=== PATIENT | female | born 1985 | race Caucasian/White ===

== ENCOUNTER 2016-10-21 17:17 | Emergency (ER) | payer OTHER ==
[2016-10-21 17:17] VITALS: BMI 26.4
[2016-10-21 17:28] VITALS: PULSE 82; O2SAT 98
--- NOTE | 2016-10-21 18:36 | C.PDOC ---
History Of Present Illness 31 y/o female c/o pain from right side neck radiating to ear and anterior neck over last 4 days with throat pain and right lower tooth pain. pt sts fever to 1010 yesterday. pt taking aleve with some relief. no cough. Time Seen by Provider: 10/21/16 17:43 Chief Complaint (Nursing): Dental Pain History Per: Patient Onset/Duration Of Symptoms: Days (4) Current Symptoms Are (Timing): Worse Quality: Positive for: Sharp Recent travel outside of the [place]: No Past Medical History Reviewed: Historical Data, Nursing Documentation, Vital Signs Vital Signs: Last Vital Signs Temp 97.3 F L 10/21/16 17:26 Pulse 82 10/21/16 17:26 Resp 16 10/21/16 17:26 BP 165/91 H 10/21/16 17:26 Pulse Ox 98 10/21/16 17:26 - Medical History PMH: Asthma (HX. NO MEDS), Migraine Surgical History: No Surg Hx - [facility] Procedures LAPAROSCOPY (03/08/14) Family History: States: Unknown Family Hx - Social History Hx Tobacco Use: No Hx Alcohol Use: Yes Hx Substance Use: No - Immunization History Hx Influenza Vaccination: No Review Of Systems Constitutional: Positive for: Fever (to 101) ENT: Positive for: Ear Pain, Mouth Pain, Throat Pain Cardiovascular: Negative for: Chest Pain Respiratory: Negative for: Cough Skin: Negative for: Rash Physical Exam - Physical Exam Appears: Non-toxic, No Acute Distress Skin: Normal Color, Warm, Dry Head: Atraumatic, Normacephalic Eye(s): bilateral: Normal Inspection Ear(s): Bilateral: Normal Nose: Normal Oral Mucosa: Moist Tongue: Normal Appearing Lips: Normal Appearing Teeth: Normal Dentition, Tender To Palpation (right lower molar, small piece broken, gum swelling adjacent) Neck: Supple Lymphatic: Adenopathy (right tender cervical anterior and posterior and submandibular nodes. ) ED Course And Treatment O2 Sat by Pulse Oximetry: 98 Medical Decision Making Medical Decision Making: tx for dental infection. pt to f/u with her dentist on fri Disposition Counseled Patient/Family Regarding: Diagnosis, Need For Followup, Rx Given - Disposition Disposition: HOME/ ROUTINE Disposition Time: 18:45 Condition: GOOD Additional Instructions: Follow up with your dentist or pMD on Ffriday as scheduled. Take antibiotics as prescribed. Take Aleve for pain. Prescriptions: Amoxicillin 500 mg PO TID #30 tablet Forms: General Discharge Instructions - Clinical Impression Clinical Impression: Dental caries
[2016-10-21 19:00] VITALS: BP 132/75; RESP 17; TEMP 98.2
== END 2016-10-21 19:01 | disposition home or self-care (01) ==
LOC: C.ER 17:17
DX: K02.9 Dental caries, unspecified (principal)

== ENCOUNTER 2017-01-13 17:14 | Emergency (ER) | payer OTHER ==
[2017-01-13 17:14] VITALS: BMI 26.4
[2017-01-13 17:27] VITALS: TEMP 98.2
[2017-01-13 18:18] LABS: RBC URINE 443 /hpf (0-3); URINE BACTERIA RARE (<OCC); URINE BILIRUBIN NEGATIVE (NEGATIVE); URINE BLOOD 3+ (NEGATIVE); URINE COLOR Yellow (YELLOW); URINE GLUCOSE (UA) NORMAL (Normal); URINE KETONE 2+ mg/dL (NEGATIVE); URINE LEUKOCYTE ESTERASE NEG Leu/uL (Negative); URINE PROTEIN 1+ mg/dL (NEGATIVE); URINE UROBILINOGEN NORMAL mg/dL (0.2-1.0); WBC URINE 1 /hpf (0-5)
[2017-01-13 18:20] VITALS: BP 139/79; PULSE 74; RESP 16
--- NOTE | 2017-01-13 18:20 | C.PDOC ---
History Of Present Illness 31 y/o female presents to ED with c/o abnormal vaginal bleeding for the last two weeks. Patient states that the vaginal bleeding first started out as her normal menstrual period which lasted for about 4-5 days, tapered off and stopped for about 1 day, and then recurred as spotting for the last week. Patient states vaginal bleeding became heavy and is associated with suprapubic cramping pain. Patient notes she had been on control pill for a while and stopped last July. She states that she had been trying to get until October, and that since then, she has been using barrier protection as contraception. She otherwise denies dizziness, palpitations, lightheadedness, fever, or chills. Time Seen by Provider: 01/13/17 18:06 Chief Complaint (Nursing): Abdominal Pain History Per: Patient History/Exam Limitations: no limitations Onset/Duration Of Symptoms: Days, Persistent Current Symptoms Are (Timing): Still Present Location Of Pain/Discomfort: Suprapubic Radiation Of Pain To:: None Quality Of Discomfort: Cramping Associated Symptoms: denies: Fever, Chills, Vomiting, Diarrhea, Urinary Symptoms Recent travel outside of the [place]: No Abnormal Vaginal Bleeding: Yes Past Medical History Reviewed: Historical Data, Nursing Documentation, Vital Signs Vital Signs: Last Vital Signs Temp 98.2 F 01/13/17 17:23 Pulse 74 01/13/17 18:19 Resp 16 01/13/17 18:19 BP 139/79 01/13/17 18:19 Pulse Ox 100 01/13/17 18:21 - Medical History PMH: Asthma (HX. NO MEDS), HTN, Migraine - [facility] Procedures LAPAROSCOPY (03/08/14) Family History: States: Unknown Family Hx - Social History Hx Tobacco Use: No Hx Alcohol Use: No Hx Substance Use: No - Immunization History Hx Tetanus Toxoid Vaccination: No Hx Influenza Vaccination: Yes Hx Pneumococcal Vaccination: No Review Of Systems Except As Marked, All Systems Reviewed And Found Negative. Constitutional: Negative for: Fever, Chills Cardiovascular: Negative for: Chest Pain, Palpitations Respiratory: Negative for: Cough Gastrointestinal: Positive for: Abdominal Pain. Negative for: Nausea, Vomiting , Diarrhea Genitourinary: Positive for: Vaginal Bleeding. Negative for: Dysuria, Hematuria Skin: Negative for: Rash Physical Exam - Physical Exam Appears: Non-toxic, No Acute Distress Skin: Warm, Dry Head: Atraumatic, Normacephalic Eye(s): bilateral: Normal Inspection Oral Mucosa: Moist Chest: Symmetrical Cardiovascular: Rhythm Regular Respiratory: Normal Breath Sounds, No Rales, No Rhonchi, No Wheezing Gastrointestinal/Abdominal: Soft, Tenderness (mild suprapubic tenderness), No Distention, No Guarding, No Rebound Back: Normal Inspection Extremity: Normal ROM, Capillary Refill (< 2 sec.) Neurological/Psych: Oriented x3, Normal Speech, Normal Cognition ED Course And Treatment - Laboratory Results Result Diagrams: 01/13/17 18:19 Lab Interpretation: Normal O2 Sat by Pulse Oximetry: 100 (RA) Pulse Ox Interpretation: Normal Progress Note: Labs including bloodwork and urinalysis ordered. 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 Instructions: Dysfunctional Uterine Bleeding (ED) - Clinical Impression Clinical Impression: Abnormal vaginal bleeding - Scribe Statement The provider has reviewed the documentation as recorded by the Kip Santoyo Provider Attestation: All medical record entries made by the Kip were at my direction and personally dictated by me. I have reviewed the chart and agree that the record accurately reflects my personal performance of the history, physical exam, medical decision making, and the department course for this patient. I have also personally directed, reviewed, and agree with the discharge instructions and disposition.
[2017-01-13 18:26] LABS: BASO # 0.1 K/uL (0.0-0.2); BASO % 0.6 % (0.0-2.0); EOS # 0.1 K/uL (0.0-0.7); EOS % 0.7 % (0.0-4.0); HEMATOCRIT 40.5 % (34.0-47.0); LYMPH # 2.9 K/uL (1.0-4.3); MEAN CELL VOLUME 89.8 fL (81.0-99.0); MEAN CORPUSCULAR HGB CONC 33.4 g/dL (33.0-37.0); MEAN PLATELET VOLUME 9.5 fL (7.2-11.7); MONO # 0.5 K/uL (0.0-0.8); MONO % 4.9 % (0.0-10.0); RED CELL DISTRIBUTION WIDTH 14.6 % (11.5-14.5); WHITE BLOOD COUNT 10.4 K/uL (4.8-10.8)
[2017-01-13 18:28] VITALS: O2SAT 100
== END 2017-01-13 19:30 | disposition home or self-care (01) ==
LOC: C.ER 17:14
DX: N93.9 Abnormal uterine and vaginal bleeding, unspecified (principal)

== ENCOUNTER 2018-05-26 10:16 | Emergency (ER) | payer OTHER ==
[2018-05-26 10:32] VITALS: BMI 24.7
[2018-05-26 10:43] VITALS: BP 130/84; PULSE 82; RESP 16; TEMP 98.9; O2SAT 100
[2018-05-26 11:43] LABS: SQUAMOUS EPITHIAL 5 /hpf (0-5); URINE BILIRUBIN NEGATIVE (NEGATIVE); URINE BLOOD NEGATIVE (NEGATIVE); URINE CLARITY Clear (Clear); URINE COLOR Yellow (YELLOW); URINE GLUCOSE (UA) NORMAL (Normal); URINE LEUKOCYTE ESTERASE NEG Leu/uL (Negative); URINE PROTEIN NEGATIVE (NEGATIVE)
--- NOTE | 2018-05-26 11:57 | C.PDOC ---
History Of Present Illness 33 y/o female with PMH of asthma, migraines, and HTN presents to the ED c/o anxiety x 2 weeks. She states she has lots of good things in her life but is unable to appreciate them because she is always sad and anxious. Pt saw PMD for this issue who prescribed her Xanax, which she states is not helping. Pt is having difficulty sleeping at night secondary to racing thoughts. Only physical complaint is mild suprapubic tenderness. LMP 04/21/18. Denies alcohol/drug use, SI, HI, hallucinations, delusions, chest pain, headache, SOB, N/V, urinary symptoms, vaginal discharge, vaginal bleeding. Chief Complaint (Nursing): Anxiety History Per: Patient History/Exam Limitations: no limitations Onset/Duration Of Symptoms: Days Past Medical History Vital Signs: Last Vital Signs Temp 98.9 F 05/26/18 10:37 Pulse 82 05/26/18 10:37 Resp 16 05/26/18 10:37 BP 130/84 05/26/18 10:37 Pulse Ox 100 05/26/18 10:37 - Medical History PMH: Asthma (HX. NO MEDS), HTN, Migraine - [facility] Procedures LAPAROSCOPY (03/08/14) Family History: States: Unknown Family Hx - Social History Hx Tobacco Use: No Hx Alcohol Use: No Hx Substance Use: No - Immunization History Hx Tetanus Toxoid Vaccination: No Hx Influenza Vaccination: Yes (2017) Hx Pneumococcal Vaccination: No Review Of Systems Except As Marked, All Systems Reviewed And Found Negative. Constitutional: Negative for: Fever, Chills Eyes: Negative for: Pain, Vision Change Cardiovascular: Negative for: Chest Pain, Palpitations Respiratory: Negative for: Cough, Shortness of Breath Gastrointestinal: Positive for: Abdominal Pain (mild suprapubic). Negative for: Nausea, Vomiting, Diarrhea, Constipation Genitourinary: Negative for: Dysuria, Frequency, Vaginal Discharge, Vaginal Bleeding, Pelvic Pain, Rash Musculoskeletal: Negative for: Neck Pain, Back Pain, Foot Pain Skin: Negative for: Rash Neurological: Negative for: Weakness, Numbness, Headache, Dizziness Psych: Positive for: Anxiety, Depression. Negative for: Psychosis, Suicidal ideation, Withdrawal Physical Exam - Physical Exam Appears: Well, No Acute Distress, Other (anxious, tearful) Skin: Normal Color, Warm, Dry Head: Atraumatic, Normacephalic Eye(s): bilateral: Normal Inspection, PERRL, EOMI Nose: Normal Oral Mucosa: Moist Tongue: Normal Appearing Lips: Normal Appearing Throat: Normal Neck: Normal Lymphatic: Deferred Chest: Symmetrical Cardiovascular: Rhythm Regular Respiratory: Normal Breath Sounds Gastrointestinal/Abdominal: Tenderness (mild suprapubic) Back: Normal Inspection Extremity: Normal ROM Extremity: Bilateral: Atraumatic, Normal Color And Temperature, Normal ROM Pulses: Left Radial: Normal, Right Radial: Normal Neurological/Psych: Oriented x3, Normal Speech, Normal Cognition, Normal Cranial Nerves, Normal Motor, Normal Sensation Gait: Steady ED Course And Treatment O2 Sat by Pulse Oximetry: 100 Medical Decision Making Medical Decision Making: Initial Plan: --Reassurance --Discussion of anxiety medication use --Discussion of sleep hygiene --UA, culture --POC urine preg POC urine preg. positive - result discussed with pt. Pt tearful, has been attempting to conceive with over last 3 months. Pts family at bedside. Pt states she has established OBGYN followup from her first child, no need for new referral. Impression: Anxiety, Positive Test Plan: -- vitamins --stop alcohol and tobacco use --stop xanax --sleep hygiene --followup with OBGYN within 2 days --followup with PMD within 2 days --return to ED if symptoms worsen Disposition Discussed With : Lance Pacheco Comment: TV US not indicated; followup with OBGYN - Disposition Referrals: Marilou Mendoza MD [Staff Provider] - Disposition: HOME/ ROUTINE Disposition Time: 11:30 Condition: STABLE Additional Instructions: Begin vitamins No tobacco or alcohol use Stop taking Xanax Only take Tylenol for pain, including headaches Followup with primary doctor within 2 days to discuss feelings of anxiety and depression Followup with OBGYN within 2 days to discuss Return to ED if symptoms worsen, you have feelings of hurting yourself or others, fevers, severe belly pain, severe vaginal bleeding Prescriptions: Vit No.126/Iron/Folic [Classic Tablet] 1 each PO DAILY #30 tablet Instructions: Anxiety, Adult (DC), Care Forms: [facility] ([place]) - Clinical Impression Clinical Impression: Anxiety, Positive urine test
== END 2018-05-26 12:06 | disposition home or self-care (01) ==
LOC: C.ER 10:16
DX: F41.9 Anxiety disorder, unspecified (principal); Z32.01 Encounter for pregnancy test, result positive

== ENCOUNTER 2018-06-15 18:36 | Emergency (ER) | payer OTHER ==
[2018-06-15 18:45] VITALS: BMI 25.3
--- NOTE | 2018-06-15 20:25 | C.PDOC ---
History Of Present Illness 33 year old femal, , presents to the ED for evaluation of of vaginal bleeding, EDC 01/21/19. Patient states she is usually nauseous on her , patient reports she had a cerclage done on her first and is scheduled to have one done in July. Patient states she went to vomit today and felt blood coming. Patient states she saw a lot of blood, some clots. Patient is currently taking pre vitamins. Patient c/o minimal abdominal cramping. Patient denies fever, chills, diarrhea, vaginal discharge, back pain, dysuria, weakness, numbness. Time Seen by Provider: 06/15/18 19:24 Chief Complaint (Nursing): Female Genitourinary History Per: Patient History/Exam Limitations: no limitations Onset/Duration Of Symptoms: Days Current Symptoms Are (Timing): Still Present Quality Of Discomfort: Cramping Associated Symptoms: Nausea, Vomiting. denies: Diarrhea, Urinary Symptoms Recent travel outside of the [place]: No Additional History Per: Patient Abnormal Vaginal Bleeding: Yes : 1 Para: 1 Past Medical History Reviewed: Historical Data, Nursing Documentation, Vital Signs Vital Signs: Last Vital Signs Temp 98.5 F 06/15/18 18:45 Pulse 68 06/15/18 18:45 Resp 18 06/15/18 18:45 BP 132/80 06/15/18 18:45 Pulse Ox 100 06/15/18 18:45 - Medical History PMH: Asthma, HTN, Migraine Surgical History: No Surg Hx - [facility] Procedures LAPAROSCOPY (03/08/14) Family History: States: Unknown Family Hx - Social History Hx Tobacco Use: No Hx Alcohol Use: No Hx Substance Use: No - Immunization History Hx Tetanus Toxoid Vaccination: No Hx Influenza Vaccination: No Hx Pneumococcal Vaccination: No Review Of Systems Constitutional: Negative for: Fever, Chills Cardiovascular: Negative for: Chest Pain Respiratory: Negative for: Cough, Shortness of Breath Gastrointestinal: Positive for: Nausea, Vomiting, Abdominal Pain. Negative for: Diarrhea Genitourinary: Positive for: Vaginal Bleeding. Negative for: Dysuria Skin: Negative for: Rash Neurological: Negative for: Weakness, Numbness Physical Exam - Physical Exam Appears: Non-toxic, No Acute Distress Skin: Normal Color, Warm, Dry Head: Atraumatic, Normacephalic Eye(s): bilateral: Normal Inspection, PERRL, EOMI Oral Mucosa: Moist Neck: Normal ROM, Supple Chest: Symmetrical Cardiovascular: Rhythm Regular Respiratory: Normal Breath Sounds, No Rales, No Rhonchi, No Wheezing Gastrointestinal/Abdominal: Bowel Sounds (active), Soft, Tenderness (lower abdomen ), No Guarding, No Rebound Back: No CVA Tenderness Pelvic: Normal Speculum Exam (dark red blood pooling on the vaginal vault, clots presents, bleeding OS), Normal Bimanual Exam, Cervix Open (finger tips) Extremity: Normal ROM, No Tenderness, No Swelling Neurological/Psych: Oriented x3, Normal Speech, Normal Cognition Gait: Steady ED Course And Treatment - Laboratory Results Result Diagrams: 06/15/18 20:37 06/15/18 20:37 O2 Sat by Pulse Oximetry: 100 (ON RA) Pulse Ox Interpretation: Normal - CT Scan/US Pelvic US Other Rad Studies (CT/US): Read By Radiologist, Radiology Report Reviewed CT/US Interpretation: History. Vaginal bleeding. Comparison. None available. Findings. Uterus. Single Live intrauterine gestation. CRL equivalent to 8 wks/0 days gestatioin. Gestational sac diameter equivalent to 8 wks/2 days gestation. Heart rate: 143.5 bpm. Bernie-gestational hemorrhage: None. Uterus measures 9.97 x 6.04 x 6.99 cm. No mass. Cervix. Long and closed measuring 2.98 cm. No cervical abnormality seen. Right Ovary. Measures 2.63 x 1.42 x 2.62 cm. No mass. Normal flow. Cyst measures 1.25 x 0.62 x 1.02 cm. Left Ovary. Measures 3.46 x 2.4 x 2.86 cm. No mass. Normal flow. Free Fluid. None. Other Findings. None. Impression. 1. Single live intrauterine gestation 8 weeks 1 day. 2. Small right ovarian cyst. . Electronically signed on Jun 15, 2018 9:30:28 PM EST by: Christian Casper M.D., YONG Certified By ABR & CBCCT. Fellowship Trained MRI and CT Specialist Medical Decision Making Medical Decision Making: Plan: * Labs * Pelvic US On reassessment, patient is resting comfortably, and is in no acute distress. Imaging results and lab work were discussed with the patient. Patient was instructed to follow up with OB in 1-2 days for further evaluation. Return precautions were also discussed with the patient. Disposition Counseled Patient/Family Regarding: Studies Performed, Diagnosis, Need For Followup - Disposition Disposition: HOME/ ROUTINE Disposition Time: 22:01 Condition: STABLE Additional Instructions: JENNIFER ROD, thank you for letting us take care of you today. Your provider was Shey Grace MD and you were treated for 2 MONTHS PREG VAGINAL BLEED. The emergency medical care you received today was directed at your acute symptoms. If you were prescribed any medication, please fill it and take as directed. It may take several days for your symptoms to resolve. Return to the Emergency Department if your symptoms worsen, do not improve, or if you have any other problems. Please contact your OB doctor in 1 day. Bring any paperwork you were given at discharge with you along with any medications you are taking to your follow up visit. Our treatment cannot replace ongoing medical care by a primary care provider outside of the emergency department. Thank you for allowing the [facility] team to be part of your care today. * Instructions: Threatened Miscarriage (DC) Forms: [employer] (Pashto), General Discharge Instructions - POA Present On Arrival: None - Clinical Impression Clinical Impression: Threatened - Scribe Statement The provider has reviewed the documentation as recorded by the Scribe Dirk Onela All medical record entries made by the Scribe were at my direction and personally dictated by me. I have reviewed the chart and agree that the record accurately reflects my personal performance of the history, physical exam, medical decision making, and the department course for this patient. I have also personally directed, reviewed, and agree with the discharge instructions and disposition.
[2018-06-15 20:44] LABS: BASO # 0.1 K/uL (0.0-0.2); BASO % 0.3 % (0.0-2.0); EOS # 0.2 K/uL (0.0-0.7); EOS % 1.2 % (0.0-4.0); HEMOGLOBIN 12.5 g/dL (11.0-16.0); LYMPH # 2.8 K/uL (1.0-4.3); LYMPH % 18.7 % (20.0-40.0); MEAN CELL VOLUME 89.2 fL (81.0-99.0); MEAN CORPUSCULAR HGB CONC 33.6 g/dL (33.0-37.0); MEAN PLATELET VOLUME 8.4 fL (7.2-11.7); MONO # 1.1 K/uL (0.0-0.8); NEUT % 72.8 % (50.0-75.0); NRBC % 0.1 % (0.0-2.0); RBC 4.19 Mil/uL (3.80-5.20); RED CELL DISTRIBUTION WIDTH 13.4 % (11.5-14.5); WHITE BLOOD COUNT 15.2 K/uL (4.8-10.8)
[2018-06-15 21:12] LABS: BLOOD UREA NITROGEN 9 mg/dL (7-17); CALCIUM 9.2 mg/dl (8.6-10.4); GFR NON-AFRICAN AMERICAN > 60
[2018-06-15 21:23] VITALS: RESP 20
[2018-06-15 22:11] VITALS: BP 140/72; PULSE 81; TEMP 97.8; O2SAT 98
--- NOTE | 2018-06-16 09:45 | US ---
Pelvic ultrasound HISTORY: . Vaginal bleeding. COMPARISON: None available. Technique: Real-time sonography was performed through the pelvis utilizing transabdominal technique. Findings: Uterus: 9.9 x 6.0 x 7.0 centimeters. Heterogeneous echotexture. Anteverted. Cervix measures 2.9 centimeters. Intrauterine gestational sac measuring 3.3 centimeters corresponding to a gestational age of 8 weeks and 2 days. Yolk sac measures 4.3 millimeters, within normal limits. [place]-rump length measures 1.6 centimeters corresponding to a gestational age of 8 weeks and 0 days. heart rate of 148 beats per minute. Heterogeneous focus suggestive for a small amount of subchorionic hemorrhage seen adjacent to the right aspect of the gestational sac measuring 1.2 x 0.5 x 1.6 centimeters. No free fluid in the pelvic cul-de-sac. Right ovary: 2.6 x 1.4 x 2.6 centimeters. Normal flow. Hypoechoic cyst measuring 1.3 x 0.6 x 1.0 centimeters. Left ovary: 3.5 x 2.4 x 2.9 centimeters. Normal flow. Impression: 1. Intrauterine corresponding to a gestational age of 8 weeks and 0 days by crown-rump length of 1.6 centimeters. heart rate of 148 beats minute. 2. Heterogeneous focus suggestive for a small amount of subchorionic hemorrhage seen adjacent to the right aspect of the gestational sac measuring 1.2 x 0.5 x 1.6 centimeters. Continued interval follow-up is recommended. 3. 1.3 centimeter right ovarian cyst. Limited 1st trimester ultrasound for viability purposes only. Continued interval followup with serial ultrasound, serial HCG levels, and gynecological consultation would be helpful if clinically indicated. A preliminary report was generated at 9:30 p.m. on 06/15/[address] Christian Casper from [employer].
== END 2018-06-15 22:16 | disposition home or self-care (01) ==
LOC: C.ER 18:36
DX: O20.0 Threatened abortion (principal); Z3A.08 8 weeks gestation of pregnancy